=== PATIENT | female | born 1950 | race Hispanic/Latino ===

== ENCOUNTER 2017-06-06 15:05 | Emergency (ER) | payer OTHER ==
[2017-06-06 15:11] VITALS: BP 163/70; PULSE 73; RESP 18; TEMP 97.6; O2SAT 100
--- NOTE | 2017-06-06 15:38 | ED PDOC ---
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 Patient states she tried to break her fall by placing her arms out in front of her. She denies any wrist pain. She denies head injury or loss of consciousness. Patient has been able to ambulate since time of fall but has pain to both knees, worse on the left versus right. PMD: Andrey Costa MD Past Medical History Reviewed: Historical Data, Nursing Documentation, Vital Signs Vital Signs: Last Vital Signs Temp 97.6 F 06/06/17 15:07 Pulse 73 06/06/17 15:07 Resp 18 06/06/17 15:07 BP 163/70 H 06/06/17 15:07 Pulse Ox 100 06/06/17 15:46 - Medical History PMH: Hypothyroidism, Mitral Valve Prolapse - Surgical History Surgical History: No Surg Hx - Family History Family History: States: No Known Family Hx - Living Arrangements Living Arrangements: With Family - Social History Current smoker - smoking cessation education provided: No Alcohol: None Drugs: Denies - Home Medications Home Medications: Ambulatory Orders Medication Instructions Recorded Cyclobenzaprine HCl [Flexeril] 10 mg PO Q8 #20 tab 09/09/15 Ibuprofen [Motrin Tab] 800 mg PO Q8 PRN #20 tab 09/09/15 Metoclopramide [Reglan] 5 mg PO TID PRN #12 tab 10/22/16 - Allergies Allergies/Adverse Reactions: Allergies Allergy/AdvReac Type Severity Reaction Status Date / Time codeine Allergy RASH Verified 10/22/16 06:45 levofloxacin [From Levaquin] Allergy RASH Verified 10/22/16 07:40 moxifloxacin HCl AdvReac NAUSEA Verified 10/22/16 06:45 [From Avelox] Review of Systems ROS Statement: Except As Marked, All Systems Reviewed And Found Negative Musculoskeletal: Positive for: Leg Pain (bilateral knees; right leg), Other ( right hip and bilateral knee pain s/p trip and fall) Neurological: Positive for: Other (denies head injury or LOC) Physical Exam - Reviewed Nursing Documentation Reviewed: Yes Vital Signs Reviewed: Yes - Physical Exam Appears: Positive for: Well, Non-toxic, No Acute Distress Head Exam: Positive for: ATRAUMATIC, NORMAL INSPECTION, NORMOCEPHALIC Skin: Positive for: Normal Color. Negative for: Rash Eye Exam: Positive for: Normal appearance Neck: Positive for: Normal Cardiovascular/Chest: Positive for: Regular Rate, Rhythm Respiratory: Positive for: Normal Breath Sounds Extremity: Positive for: Other (Tenderness to right hip and knees bilaterally with full range of motion of same, normal distal sensation bilateral lower extremities, full range of motion of bilateral wrists without limitation) Neurologic/Psych: Positive for: Alert, Oriented, Gait (steady) - ECG O2 Sat by Pulse Oximetry: 100 (RA) Pulse Ox Interpretation: Normal - Other Rad Pelvis, right hip and right femur x-ray X-Ray: Interpreted by Me, Viewed By Me X-Ray Interpretation: no fx, no dis X-ray left and right knees X-Ray: Interpreted by Me, Viewed By Me X-Ray Interpretation: no fx, no dis Medical Decision Making Medical Decision Making: Initial Impression: 66 year old with bilateral knee pain and right hip pain s/ p fall Initial Plan: * Xray knee (SUKI) * Motrin 600mg PO * Xray femur (right) * Xray hip with pelvis (right) ] Patient is aware of x-ray results. All questions answered. Motrin did provide pain relief. Patient requesting knee immobilizer for left leg. Patient was referred to orthopedist on-call for follow-up. Crutches declined. Scribe Attestation: Documented by Anita Calhoun, acting as a scribe for Radha Ochoa PA-C. Provider Scribe Attestation: All medical record entries made by the Scribe were at my direction and personally dictated by me. I have reviewed the chart and agree that the record accurately reflects my personal performance of the history, physical exam, medical decision making, and the department course for this patient. I have also personally directed, reviewed, and agree with the discharge instructions and disposition. Procedures - Splinting Location: Left knee Pre-Made Type: knee immobilizer Pre-Proc Neuro Vasc Exam: normal Post-Proc Neuro Vasc Exam: normal Disposition - Clinical Impression Clinical Impression: Knee sprain, bilateral, Hip sprain - Patient ED Disposition Is Patient to be Admitted: No Counseled Patient/Family Regarding: Studies Performed, Diagnosis, Need For Followup - Disposition Referrals: Sandy Llamas MD [Staff Provider] - Disposition: Routine/Home Disposition Time: 16:59 Condition: STABLE Additional Instructions: Ice, rest and elevate affected area. Motrin for pain as needed. Follow up with orthopedist for any persistent symptoms. Instructions: Knee Sprain (ED), Hip Sprain (ED), Contusion in Adults (ED) Forms: [facility] (Italian), [facility] ED School/Work Excuse
--- NOTE | 2017-06-06 16:35 | RAD ---
PROCEDURE: Bilateral Knee Radiographs. HISTORY: Trauma COMPARISON: None. FINDINGS: BONES: Bone alignment and mineralization are normal. There is no acute displaced fracture or bone destruction. There is mild periarticular bone demineralization. JOINTS: There is mild tricompartmental degenerative osteoarthrosis with mild reduced joint spaces, tibial spiking and marginal spurring, worse in the medial compartments. SOFT TISSUES: Right Knee: Normal. Left Knee: Normal. JOINT EFFUSION: There are small suprapatellar joint effusions, worse on the left. OTHER FINDINGS: None. IMPRESSION: No acute displaced fracture or dislocation. Mild tricompartmental degenerative osteoarthrosis, worse in the medial compartment. Small suprapatellar joint effusions, worse on the left.
--- NOTE | 2017-06-06 16:36 | RAD ---
PROCEDURE: Radiographs of the pelvis. HISTORY: Trauma COMPARISON: None. FINDINGS: BONES: The pelvic ring is intact. There is no acute displaced fracture or bone destruction. JOINTS: The hip joint spaces are preserved. The sacroiliac joints are normal. There is no osteitis pubis OTHER FINDINGS: None. IMPRESSION: No acute displaced fracture or dislocation. Please note occult fractures cannot be excluded on plain radiographs. If there is a persistent clinical concern, an MRI of the hip may be performed for further evaluation.
--- NOTE | 2017-06-06 16:37 | RAD ---
PROCEDURE: Right Femur Radiographs. HISTORY: Trauma COMPARISON: None. TECHNIQUE: AP and Lateral Radiographs of the right femur. FINDINGS: FEMUR: Bone alignment is normal. There is diffuse bone demineralization. There is no acute fracture or bone destruction. SOFT TISSUES: Normal. OTHER FINDINGS: None. IMPRESSION: No acute displaced fracture.
== END 2017-06-06 17:12 | disposition home or self-care (01) ==
LOC: H.ER 15:05
DX: S83.91XA Sprain of unspecified site of right knee, initial encounter (principal); S83.92XA Sprain of unspecified site of left knee, initial encounter; S73.101A Unspecified sprain of right hip, initial encounter; W01.0XXA Fall on same level from slipping, tripping and stumbling without subsequent striking against object, initial encounter; Y92.238 Other place in hospital as the place of occurrence of the external cause; E03.9 Hypothyroidism, unspecified; I34.1 Nonrheumatic mitral (valve) prolapse

== ENCOUNTER 2018-11-18 07:43 | Emergency (ER) | payer OTHER ==
[2018-11-18 07:48] VITALS: BP 122/77; PULSE 90; RESP 16; TEMP 97.4; O2SAT 98
--- NOTE | 2018-11-18 08:16 | ED PDOC ---
Lower Extremity Pain/Injury Time Seen by Provider: 11/18/18 07:59 Chief Complaint (Nursing): Lower Extremity Problem/Injury Chief Complaint (Provider): Right leg pain History Per: Patient History/Exam Limitations: no limitations Onset/Duration Of Symptoms: Other (ongoing pain for one year) Current Symptoms Are (Timing): Still Present Additional Complaint(s): 68 year old female presents to the ED for an evaluation of her right leg pain on the gluteal area. 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 Currently, patient has ongoing pain that is radiating down her leg since the fall one year ago for which she was treated. She takes Motrin for pain and she did not take any medication today. Otherwise, patient denies, any new injury, new fall, tingling, numbness, back pain, dysuria, incontinence, fever, chills, shortness of breath, nausea, vomiting, diarrhea, abdominal pain or rash. PMD: Dr. Amado Costa Past Medical History Reviewed: Historical Data, Nursing Documentation, Vital Signs Vital Signs: Last Vital Signs Temp 97.4 F L 11/18/18 07:47 Pulse 90 11/18/18 07:47 Resp 16 11/18/18 07:47 BP 122/77 11/18/18 07:47 Pulse Ox 98 11/18/18 07:47 - Medical History PMH: Hypothyroidism, Mitral Valve Prolapse - Surgical History Surgical History: No Surg Hx - Family History Family History: States: Unknown Family Hx - Social History Current smoker - smoking cessation education provided: No Alcohol: Social Drugs: Denies - Immunization History Hx Tetanus Toxoid Vaccination: No Hx Influenza Vaccination: No Hx Pneumococcal Vaccination: No - Home Medications Home Medications: Ambulatory Orders Medication Instructions Recorded Cyclobenzaprine HCl [Flexeril] 10 mg PO Q8 #20 tab 09/09/15 Ibuprofen [Motrin Tab] 800 mg PO Q8 PRN #20 tab 09/09/15 Metoclopramide [Reglan] 5 mg PO TID PRN #12 tab 10/22/16 Ibuprofen [Motrin] 600 mg PO TID 7 Days tab 11/18/18 - Allergies Allergies/Adverse Reactions: Allergies Allergy/AdvReac Type Severity Reaction Status Date / Time codeine Allergy RASH Verified 10/22/16 06:45 levofloxacin [From Levaquin] Allergy RASH Verified 10/22/16 07:40 moxifloxacin HCl AdvReac NAUSEA Verified 10/22/16 06:45 [From Avelox] Review of Systems ROS Statement: Except As Marked, All Systems Reviewed And Found Negative Constitutional: Negative for: Fever, Chills Cardiovascular: Negative for: Chest Pain Respiratory: Negative for: Cough, Shortness of Breath Gastrointestinal: Negative for: Nausea, Vomiting, Abdominal Pain, Diarrhea Genitourinary Female: Negative for: Dysuria, Frequency, Incontinence Musculoskeletal: Positive for: Leg Pain (right). Negative for: Back Pain Skin: Negative for: Rash Neurological: Negative for: Numbness, Other (tingling) Physical Exam - Reviewed Nursing Documentation Reviewed: Yes Vital Signs Reviewed: Yes - Physical Exam Appears: Positive for: Non-toxic, No Acute Distress Head Exam: Positive for: ATRAUMATIC, NORMAL INSPECTION, NORMOCEPHALIC Skin: Positive for: Normal Color, Warm, Dry. Negative for: Rash Cardiovascular/Chest: Positive for: Regular Rate, Rhythm. Negative for: Murmur Respiratory: Positive for: Normal Breath Sounds. Negative for: Decreased Breath Sounds, Wheezing, Respiratory Distress Extremity: Positive for: Normal ROM (no echymosis, erythema; straight leg b/l), Tenderness (gluteal area lateral R with mild tenderenss), Capillary Refill (normal), Other (No erythema; no ecchymosis; straight leg raise neg b/l). Negative for: Pedal Edema, Calf Tenderness, Deformity, Swelling Neurologic/Psych: Positive for: Alert, Oriented (x3) - ECG O2 Sat by Pulse Oximetry: 98 (RA) Pulse Ox Interpretation: Normal Medical Decision Making Medical Decision Making: Time: 811 Plan: Toradol 15mg Reevaluation Scribe Attestation: Documented by Lea Ludwig, acting as a scribe for Hossein Rg MD. Provider Scribe Attestation: All medical record entries made by the Scribe were at my direction and personally dictated by me. I have reviewed the chart and agree that the record accurately reflects my personal performance of the history, physical exam, [facility] decision making, and the department course for this patient. I have also personally directed, reviewed, and agree with the discharge instructions and disposition. 900: Feels much better. Ambulated with no issues. AAOx3. Will fu with [facility]. Disposition - Clinical Impression Clinical Impression: Muscle pain - Disposition Referrals: [facility] [Outside] - 11/19/18 Disposition Time: 08:21 Condition: STABLE Additional Instructions: Return if not better in 3 days. Prescriptions: Ibuprofen [Motrin] 600 mg PO TID 7 Days tab Instructions: Muscle and Bone Pain (DC) Forms: [facility] (Irish), [facility] ED School/Work Excuse
== END 2018-11-18 08:53 | disposition home or self-care (01) ==
LOC: H.ER 07:43
DX: M79.604 Pain in right leg (principal); E03.9 Hypothyroidism, unspecified; I34.1 Nonrheumatic mitral (valve) prolapse; Z88.1 Allergy status to other antibiotic agents
CPT/HCPCS: 96372; 99284; J1885